=== PATIENT | male | born 1985 | race Caucasian/White ===

== ENCOUNTER 2016-11-12 17:02 | Emergency (ER) | payer OTHER ==
[2016-11-12 17:31] VITALS: BP 145/92; PULSE 96; RESP 16; TEMP 98.6; O2SAT 95
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
[2016-11-12] MEDS ORDERED: CLINDAMYCIN 600 MG/DEXTROSE 50 ML IV ONE (18:27)
[2016-11-12 18:40] LABS: % IMMATURE GRANULYOCYTES 0.2 % (0.0-1.1); ABSOLUTE IMMATURE GRANULOCYTES 0.01 10^3/uL (0.00-0.10); ADD DIFF? NO; ADD MORPH? NO; ADD SCAN? NO; ATYPICAL LYMPHOCYTE FLAG 10 (0-99); FRAGMENT RBC FLAG 0 (0-99); HEMATOCRIT 45.7 % (40.0-51.0); HEMOGLOBIN 16.2 g/dL (13.7-17.5); LEFT SHIFT FLG 0 (0-99); LIPEMIA HEMOLYSIS FLAG 90 (0-99); MEAN CELL HEMOGLOBIN CONCENTR. 35.4 g/dL (32.4-36.7); MEAN CELL VOLUME 87.5 fL (81.5-99.8); MEAN PLATELET VOLUME 10.3 fL (8.7-11.7); PLATELET CLUMPS FLAG 0 (0-99); PLATELET COUNT 224 10^3/uL (150-400); RED BLOOD CELL COUNT 5.22 10^6/uL (4.40-6.38); RED CELL DISTRIBUTION WIDTH 12.5 % (11.5-15.2)
[2016-11-12 18:51] LABS: ANION GAP 15 mEq/L (8-16); CALCIUM 9.5 mg/dL (8.5-10.4); CARBON DIOXIDE 21 mEq/l (22-31); CHLORIDE 109 mEq/L (97-110); CREATININE 0.8 mg/dL (0.7-1.3); GLOMERULAR FILTRATION RATE > 60; GLUCOSE 88 mg/dL (70-100); POTASSIUM 4.1 mEq/L (3.5-5.2); SODIUM 145 mEq/L (134-144)
[2016-11-12 18:59] LABS: SEDIMENTATION RATE 4 MM/HR (0-15)
--- NOTE | 2016-11-12 19:06 | DX ---
Left Hand 3 Views History: Injury 2 weeks ago, infection. Comparison: None available. Findings: No fractures identified. Alignment is normal. Bone mineralization is normal. There is no si gnificant degenerative change. Impression: No acute osseous findings.
== END 2016-11-12 19:27 | disposition home or self-care (01) ==
LOC: CED 17:02
DX: L08.9 Local infection of the skin and subcutaneous tissue, unspecified (principal); S61.412D Laceration without foreign body of left hand, subsequent encounter; V29.88XD Motorcycle rider (driver) (passenger) injured in other specified transport accidents, subsequent encounter; Z48.02 Encounter for removal of sutures
CPT/HCPCS: 73130-PO; 80048-PO; 85025-PO; 85652-PO; 96365-PO; 99214-PO; G0463-PO

== ENCOUNTER 2017-02-11 20:56 | Emergency (ER) | payer OTHER ==
[2017-02-11] MEDS ORDERED: HYDROmorphONE/DILAUDID 1 MG/ML SYR IVP ONE ×2 (21:07→22:43)
[2017-02-11 21:10] VITALS: RESP 16
--- NOTE | 2017-02-11 21:29 | EDPHY ---
H & P Stated Complaint: fell onto tailbone, now has uncontrolled bleeding. Source: Patient Exam Limitations: No limitations - Personal History Current Tetanus Diphtheria and Acellular Pertussis (TDAP): Yes Tetanus Vaccine Date: 2014 - Medical/Surgical History Hx Asthma: No Hx Chronic Respiratory Disease: No Hx Diabetes: No Hx Cardiac Disease: No Hx Renal Disease: No Hx Cirrhosis: No Hx Alcoholism: No Hx HIV/AIDS: No Hx Splenectomy or Spleen Trauma: No Other PMH: Tonsillectomy. Appendectomy - Social History Smoking Status: Never smoked Time Seen by Provider: 02/11/17 21:09 HPI/ROS: CHIEF COMPLAINT: Coccyx pain and bleeding HISTORY OF PRESENT ILLNESS: The patient is a 31 y/o male, with a history of hemorrhoids, complaining of pain and bleeding from his coccygeal region secondary to a fall 4 hours ago. He says he was holding a heavy box while crouched in his attic and fell backwards "in a seated position" directly onto his rectum. He has had persistent pain and bleeding from the area since then. He is unable to tell where the bleeding is coming from. He denies striking his head, losing consciousness, other injuries, weakness, or paresthesias. He has occasionally had bleeding and pain with his hemorrhoids, but has never treated them with medication. He states he's had blood in his stool for this last week subsequent to a 2-week upper respiratory infection and cough. He denies painful bowel movements and reports he did not notice more than normal pain today prior to the fall. REVIEW OF SYSTEMS: A 10 point review of systems was performed and is negative with the exception of the elements mentioned in the history of present illness. He notes he had a cold with cough about 2 weeks ago that has since resolved. (Danelle Irvin) - Medical/Surgical History PMH: PMH includes: 1. Hemorrhoids 2. Tonsillectomy 3. Appendectomy (Daenlle Irvin) - Social History Additional Social History: Nonsmoker, but endorses occasional cigar use. No alcohol. . Works as a bridge construction framer. No current PCP. Previously saw Dr. Ha. (Danelle Irvin) - Physical Exam Exam: General Appearance: Alert, no acute distress. BP 152/100. Eyes: Pupils equal and round, no conjunctival injection, no discharge. ENT, Mouth: Mucous membranes are moist, no oropharyngeal erythema or edema. Neck: Nontender to palpation over the cervical spine. Respiratory: Lungs are clear to auscultation; no wheezes, rales, or rhonchi. Cardiovascular: Regular rate and rhythm; no murmur, rub, or gallop. Gastrointestinal: Abdomen is soft and non tender, no masses or organomegaly, bowel sounds normal. Skin: Warm and dry, no rashes, normal color. Back: Nontender to palpation over the thoracolumbar spine. No midline bony tenderness over C/T/L/S spine. Rectal: Multiple external hemorrhoids with 2 small thrombosed discolored (purple ) hemorrhoids (pea sized)--one of which is particularly tender to palpation, blood oozing around hemorrhoids without obvious source. Unable to do rectal exam due to pain. Extremities: No lower extremity edema, no calf tenderness or swelling. Neurological: Alert and oriented. Moving all four extremities easily and equally. Psychiatric: Normal affect. (Danelle Irvin) Constitutional: Initial Vital Signs Temperature (C) 37.4 C 02/11/17 21:06 Heart Rate 85 02/11/17 21:06 Respiratory Rate 16 02/11/17 21:06 Blood Pressure 152/100 H 02/11/17 21:06 O2 Sat (%) 94 02/11/17 21:06 O2 Delivery Mode Room Air Allergies/Adverse Reactions: Sulfa (Sulfonamide Antibiotics) Allergy (Verified 02/11/17 21:04) sulfamethoxazole [From Bactrim] Allergy (Verified 02/11/17 21:04) trimethoprim [From Bactrim] Allergy (Verified 02/11/17 21:04) Home Medications: Medication Instructions Recorded NK [No Known Home Meds] 02/11/17 Medical Decision Making - Diagnostics Imaging: Discussed imaging studies w/ yarn mercerizer operator helper Radiologist ED Course/Re-evaluation: 0.5mg IV Dilaudid and topical anesthetic administered to hemorrhoid/anal area. Patient is unable to tolerate physical exam at this time. Sacrum x-ray ordered. 2220: X-ray is negative for fracture per Dr. Luciano. Reassessed patient and discussed findings with the patient. He is unable to tolerate complete rectal exam due to pain; however, I'm able to visualize 2 external thrombosed hemorrhoids that are quite tender to the touch. It is my impression that his pain and bleeding are secondary to hemorrhoids. The fall on to his buttocks likely exacerbated this and, in further discussion with him, it seems that he has suffered from hemorrhoid pain intermittently for quite some time. Procedure: Incision and Drainage of Thrombosed Hemorrhoid. Risks, benefits, alternatives discussed with the patient and consent obtained. The area was prepped and draped in sterile fashion. The patient received local anesthesia with 1% lidocaine with epinephrine. The hemorrhoid was incised with a #11 blade and no significant clot was expressed. Pressure applied to stop bleeding. The patient tolerated the procedure well. The procedure was performed by myself. I am referring him for surgical follow up for hemorrhoid treatment as recommended. Other hemorroid treatments reviewed with him and advised. I do not suspect rectal fissure, rectal or perirectal abscess, internal bleeding--but was unable to do full rectal exam due to his discomfort. (Danelle Irvin) - Data Points Laboratory Results: Laboratory Results 02/11/17 22:42 Medications Given: Discontinued Medications Hydrocodone Bitart/Acetaminophen ([place] 5/325mg Prepack#6) 1 btl TAKEHOME EDNOW ONE Stop: 02/11/17 23:07 Last Admin: 02/11/17 23:14 Dose: 1 btl Hydromorphone HCl (Dilaudid) 0.5 mg IVP EDNOW ONE Stop: 02/11/17 21:08 Last Admin: 02/11/17 21:19 Dose: 0.5 mg Hydromorphone HCl (Dilaudid) 0.5 mg IVP EDNOW ONE Stop: 02/11/17 22:44 Last Admin: 02/11/17 22:43 Dose: 0.5 mg Lidocaine (Uroject Lidocaine 2% Jelly) 20 ml UR EDNOW ONE Stop: 02/11/17 21:36 Last Admin: 02/11/17 21:42 Dose: 20 ml Departure - Departure Disposition: Home, Routine, Self-Care Clinical Impression: Thrombosed external hemorrhoid Condition: Good Instructions: Hydrocodone/Acetaminophen (By mouth), Hemorrhoids (ED), Thrombosed Hemorrhoid (ED) Additional Instructions: 1. Use Preparation H with hydrocortisone and apply to affected area daily. 2. Use Tucks medicated pads. 3. Take stool softener while hemorrhoids are present. 4. Take a sitz bath as directed. 5. Follow up with Dr. De Dios, surgeon, in the next week. Referrals: Cuco De Dios MD [Medical Doctor] - As per Instructions Report Scribed for: Danelle Irvin Report Scribed by: Bethany Antonio Date of Report: 02/11/17 Time of Report: 21:29 Physician Review and Approval Statement: 02/11/17 21:49 Portions of this note were transcribed by the ophthalmic medical technologist. I, Dr. Danelle Irvin, personally performed the history, physical exam, and medical decision- making; and confirmed the accuracy of the information in the transcribed note. ( Danelle Irvin)
[2017-02-11] MEDS ORDERED: LIDOCAINE 2% JELLY 20 ML (UROJECT) UR ONE (21:35)
[2017-02-11] MEDS ORDERED: LIDOCAINE 2% JELLY 20 ML (UROJECT) ONE (21:40)
[2017-02-11] MEDS ORDERED: HYDROmorphONE/DILAUDID 1 MG/ML SYR ONE (22:43)
[2017-02-11 22:48] LABS: % IMMATURE GRANULYOCYTES 0.2 % (0.0-1.1); ABSOLUTE IMMATURE GRANULOCYTES 0.01 10^3/uL (0.00-0.10); ADD DIFF? NO; ADD MORPH? NO; ADD SCAN? NO; ATYPICAL LYMPHOCYTE FLAG 20 (0-99); FRAGMENT RBC FLAG 0 (0-99); HEMOGLOBIN 14.4 g/dL (13.7-17.5); LEFT SHIFT FLG 0 (0-99); LIPEMIA HEMOLYSIS FLAG 90 (0-99); MEAN CELL HEMOGLOBIN 30.6 pg (27.9-34.1); MEAN CELL HEMOGLOBIN CONCENTR. 35.1 g/dL (32.4-36.7); MEAN CELL VOLUME 87.2 fL (81.5-99.8); MEAN PLATELET VOLUME 10.9 fL (8.7-11.7); PLATELET CLUMPS FLAG 30 (0-99); PLATELET COUNT 139 10^3/uL (150-400); RED CELL DISTRIBUTION WIDTH 13.1 % (11.5-15.2)
[2017-02-11] MEDS ORDERED: HYDROCOD/APAP 5/325 PREPACK#6 BTL TAKEHOME ONE (23:06)
[2017-02-11 23:36] VITALS: BP 146/99; PULSE 56; TEMP 98.2; O2SAT 96
== END 2017-02-11 23:25 | disposition home or self-care (01) ==
LOC: CED 20:56
PROC: 069Y0ZZ Drainage of Lower Vein, Open Approach (ICD-10-PCS; principal; 2017-02-11)
DX: K64.5 Perianal venous thrombosis (principal); W18.39XA Other fall on same level, initial encounter
CPT/HCPCS: 72220-PO; 85025-PO; 96374; J1170

== ENCOUNTER 2017-04-12 07:36 | Emergency (ER) | payer OTHER ==
[2017-04-12 07:51] VITALS: TEMP 98.6
[2017-04-12] MEDS ORDERED: ONDANSETRON 4 MG/2 ML VIAL IVP ONE (07:55)
[2017-04-12] MEDS ORDERED: NS 2,000 ML IV ONE (07:55)
[2017-04-12 08:18] LABS: % IMMATURE GRANULYOCYTES 0.3 % (0.0-1.1); ABSOLUTE IMMATURE GRANULOCYTES 0.02 10^3/uL (0.00-0.10); ADD DIFF? NO; ADD MORPH? NO; ADD SCAN? NO; ATYPICAL LYMPHOCYTE FLAG 10 (0-99); FRAGMENT RBC FLAG 0 (0-99); HEMATOCRIT 45.3 % (40.0-51.0); HEMOGLOBIN 16.1 g/dL (13.7-17.5); LEFT SHIFT FLG 0 (0-99); LIPEMIA HEMOLYSIS FLAG 90 (0-99); MEAN CELL HEMOGLOBIN CONCENTR. 35.5 g/dL (32.4-36.7); MEAN CELL VOLUME 87.3 fL (81.5-99.8); MEAN PLATELET VOLUME 10.5 fL (8.7-11.7); PLATELET CLUMPS FLAG 10 (0-99); PLATELET COUNT 193 10^3/uL (150-400); RED BLOOD CELL COUNT 5.19 10^6/uL (4.40-6.38); RED CELL DISTRIBUTION WIDTH 12.7 % (11.5-15.2)
[2017-04-12] MEDS ORDERED: LORazepam 2 MG/ML INJ IVP ONE (08:30)
[2017-04-12 08:31] LABS: ALANINE AMINOTRANSFERASE 91 IU/L (21-72); ALBUMIN 4.5 g/dL (3.5-5.0); ALKALINE PHOSPHATASE 78 IU/L (38-126); ANION GAP 16 mEq/L (8-16); ASPARTATE AMINOTRANSFERASE 42 IU/L (17-59); BILIRUBIN,TOTAL 0.7 mg/dL (0.1-1.4); CALCIUM 9.2 mg/dL (8.5-10.4); CARBON DIOXIDE 20 mEq/l (22-31); CHLORIDE 108 mEq/L (97-110); CREATININE 0.9 mg/dL (0.7-1.3); GLOMERULAR FILTRATION RATE > 60; GLUCOSE 92 mg/dL (70-100); SODIUM 144 mEq/L (134-144); TOTAL PROTEIN 7.2 g/dL (6.3-8.2)
[2017-04-12] MEDS ORDERED: METOCLOPRAMIDE 10 MG/2 ML VIAL IVP ONE (08:59)
[2017-04-12] MEDS ORDERED: MAG HYDROX/AL HYDROX/SIMETH 30 ML UDCUP PO ONE (09:30)
[2017-04-12] MEDS ORDERED: HYOSCYAMINE SULFATE 0.125 MG TAB PO ONE (09:30)
[2017-04-12 09:31] VITALS: RESP 16
[2017-04-12] MEDS ORDERED: HYOSCYAMINE SULFATE 0.125 MG TAB ONE (09:38)
--- NOTE | 2017-04-12 09:51 | EDPHY ---
H & P Stated Complaint: epigastric abd pain and vomiting since Time Seen by Provider: 04/12/17 07:50 HPI/ROS: This patient reports a feeling poorly at the end of last week starting on describing onset of nausea and vomiting. He proceeded to have vomiting she 3 times a day Wednesday. He also had diarrhea the 1st day of illness several episodes of loose watery stool then resolved. He had improved by yester-Wednesday having had resolution of his symptoms. He also describes having fevers up to 101 the 1st 2 days of illness that resolved. He awakened this morning with recurrence of vomiting attributes this to excessive alcohol intake last night. 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 He awakened early this morning 3 or 4:00 a.m. with vomiting and has persisted with frequent vomiting since then. He describes burning epigastric discomfort associated with this that is nonradiating and moderate in intensity. ROS: Constitutional: No fevers for the past 2 days. HEENT: No URI symptoms or other complaints Pulmonary: No cough shortness of breath Cardiovascular: No chest pain GI: No hematemesis or coffee-ground emesis. He reports normal bowel movements over the last 24 hours. : No complaints Integumentary: No skin rash 10 point ROS is otherwise negative Source: Patient Exam Limitations: No limitations - Personal History Current Tetanus Diphtheria and Acellular Pertussis (TDAP): Yes Tetanus Vaccine Date: 2014 - Medical/Surgical History Hx Asthma: No Hx Chronic Respiratory Disease: No Hx Diabetes: No Hx Cardiac Disease: No Hx Renal Disease: No Hx Cirrhosis: No Hx Alcoholism: No Hx HIV/AIDS: No Hx Splenectomy or Spleen Trauma: No Other PMH: Tonsillectomy - Family History Significant Family History: No pertinent family hx - Social History Smoking Status: Never smoked Alcohol Use: Other (Patient reports occasional binge drinking including last night but does not drink regularly.) Drug Use: None - Physical Exam Exam: Vital signs reveal mild hypertension 142/94, otherwise normal General Appearance: Alert, no distress. Eyes: Pupils equal and round no pallor or injection. ENT, Mouth: Mucous membranes dry. Mild alcohol halitosis Respiratory: There are no retractions, lungs are clear to auscultation. Cardiovascular: Regular rate and rhythm. No murmur gallop or rub Gastrointestinal: Abdomen is soft and nontender, no masses, bowel sounds normal. No hepatomegaly. Neurological: GCS 15 with no focal deficits. Skin: Warm and dry, no rashes. Musculoskeletal: Neck is supple nontender. Extremities are symmetrical, full range of motion. Psychiatric: Mood and affect normal DIFFERENTIAL DIAGNOSIS: After history and physical exam differential diagnosis was considered for alcohol intoxication with vomiting, alcohol gastritis, pancreatitis, cholecystitis, hepatitis Constitutional: Initial Vital Signs Temperature (C) 37.0 C 04/12/17 07:46 Heart Rate 66 04/12/17 07:46 Respiratory Rate 16 04/12/17 07:46 Blood Pressure 142/94 H 04/12/17 07:46 O2 Sat (%) 97 04/12/17 07:46 O2 Delivery Mode Room Air Allergies/Adverse Reactions: Sulfa (Sulfonamide Antibiotics) Allergy (Verified 04/12/17 07:51) sulfamethoxazole [From Bactrim] Allergy (Verified 04/12/17 07:51) trimethoprim [From Bactrim] Allergy (Verified 04/12/17 07:51) Home Medications: Medication Instructions Recorded Ondansetron Odt [Zofran Odt] 4 - 8 mg PO Q4PRN PRN #4 tab 04/12/17 Pantoprazole Sodium [Protonix 40mg 40 mg PO DAILY #30 tab 04/12/17 (RX)] Medical Decision Making ED Course/Re-evaluation: IV normal saline bolus, Zofran, Ativan, Reglan and Benadryl finally with resolution of nausea vomiting. She tolerated p.o. intake thereafter Maalox and Levsin orally with improvement in discomfort. Counseled this patient to avoid excessive binge drinking future After workup, labs reveal no evidence of hepatitis, pancreatitis or other complicating factors. Findings are most consistent with alcohol gastritis, vomiting dehydration. I counseled the patient regarding these findings. He understands the need to return emergency department should she have any significant recurrence of the symptoms despite the treatment plan - Data Points Laboratory Results: Laboratory Results 04/12/17 08:10 04/12/17 08:10 04/12/17 04/12/17 08:10 08:10 WBC 5.93 10^3/uL 10^3/uL (3.80-9.50) RBC 5.19 10^6/uL 10^6/uL (4.40-6.38) Hgb 16.1 g/dL g/dL (13.7-17.5) Hct 45.3 % % (40.0-51.0) MCV 87.3 fL fL (81.5-99.8) MCH 31.0 pg pg (27.9-34.1) MCHC 35.5 g/dL g/dL (32.4-36.7) RDW 12.7 % % (11.5-15.2) Plt Count 193 10^3/uL 10^3/uL (150-400) MPV 10.5 fL fL (8.7-11.7) Neut % (Auto) 47.1 % % (39.3-74.2) Lymph % (Auto) 39.5 % % (15.0-45.0) [place] % (Auto) 9.4 % % (4.5-13.0) Eos % (Auto) 2.7 % % (0.6-7.6) Baso % (Auto) 1.0 % % (0.3-1.7) Nucleat RBC Rel Count 0.0 % % (0.0-0.2) Absolute Neuts (auto) 2.79 10^3/uL 10^3/uL (1.70-6.50) Absolute Lymphs (auto) 2.34 10^3/uL 10^3/uL (1.00-3.00) Absolute Monos (auto) 0.56 10^3/uL 10^3/uL (0.30-0.80) Absolute Eos (auto) 0.16 10^3/uL 10^3/uL (0.03-0.40) Absolute Basos (auto) 0.06 10^3/uL 10^3/uL (0.02-0.10) Absolute Nucleated RBC 0.00 10^3/uL 10^3/uL (0-0.01) Immature Gran % 0.3 % % (0.0-1.1) Immature Gran # 0.02 10^3/uL 10^3/uL (0.00-0.10) Sodium 144 mEq/L mEq/L (134-144) Potassium 4.0 mEq/L mEq/L (3.5-5.2) Chloride 108 mEq/L mEq/L (97-110) Carbon Dioxide 20 mEq/l L mEq/l (22-31) Anion Gap 16 mEq/L mEq/L (8-16) BUN 10 mg/dL mg/dL (7-23) Creatinine 0.9 mg/dL mg/dL (0.7-1.3) Estimated GFR > 60 Glucose 92 mg/dL mg/dL (70-100) Calcium 9.2 mg/dL mg/dL (8.5-10.4) Total Bilirubin 0.7 mg/dL mg/dL (0.1-1.4) AST 42 IU/L IU/L (17-59) ALT 91 IU/L H IU/L (21-72) Alkaline Phosphatase 78 IU/L IU/L (38-126) Total Protein 7.2 g/dL g/dL (6.3-8.2) Albumin 4.5 g/dL g/dL (3.5-5.0) Lipase 45.0 IU/L IU/L (23-300) Medications Given: Discontinued Medications Al Hydroxide/Mg Hydroxide (Maalox Susp) 30 ml PO ONCE ONE Stop: 04/12/17 09:31 Last Admin: 04/12/17 09:32 Dose: 30 ml Diphenhydramine HCl (Benadryl Injection) 25 mg IVP EDNOW ONE Stop: 04/12/17 09:00 Last Admin: 04/12/17 09:03 Dose: 25 mg Hyoscyamine Sulfate (Levsin, Hyomax-Sl) 0.25 mg PO ONCE ONE Stop: 04/12/17 09:31 Last Admin: 04/12/17 09:32 Dose: 0.25 mg Sodium Chloride (Ns) 2,000 mls @ 0 mls/hr IV ONCE ONE; Wide Open PRN Reason: Protocol Stop: 04/12/17 07:56 Last Admin: 04/12/17 08:10 Dose: 2,000 mls Lorazepam (Ativan Injection) 1 mg IVP EDNOW ONE Stop: 04/12/17 08:31 Last Admin: 04/12/17 08:30 Dose: 1 mg Metoclopramide HCl (Reglan Injection) 10 mg IVP EDNOW ONE Stop: 04/12/17 09:00 Last Admin: 04/12/17 09:04 Dose: 10 mg Ondansetron HCl (Zofran) 4 mg IVP EDNOW ONE Stop: 04/12/17 07:56 Last Admin: 04/12/17 08:10 Dose: 4 mg Departure - Departure Disposition: Home, Routine, Self-Care Clinical Impression: Dehydration Vomiting Qualifiers: Vomiting type: unspecified Vomiting Intractability: non-intractable Nausea presence: with nausea Qualified Code(s): R11.2 - Nausea with vomiting, unspecified Condition: Good Instructions: Gastritis (ED), Acute Nausea and Vomiting (ED) Additional Instructions: Diagnosis: 1. Vomiting 2. Dehydration 3. Gastritis Plan: Avoid excessive binge drinking. Maalox for discomfort if needed Protonix acid morgan until your upper belly discomfort resolves. [place] diet to feel improved Zofran for nausea or vomiting Follow up with Dr. Ojeda -primary care physician for any ongoing symptoms despite the treatment plan Return for any significant worsening despite the treatment plan Referrals: NONE *PRIMARY CARE P,. [Primary Care Provider] - As per Instructions Amanda Ojeda MD [Medical Doctor] - As per Instructions Prescriptions: Ondansetron Odt [Zofran Odt] 4 - 8 mg PO Q4PRN PRN #4 tab PRN Reason: Vomiting Pantoprazole Sodium [Protonix 40mg (RX)] 40 mg PO DAILY #30 tab
[2017-04-12 10:51] VITALS: BP 121/72; PULSE 80; O2SAT 95
== END 2017-04-12 10:33 | disposition home or self-care (01) ==
LOC: CED 07:36
DX: E86.0 Dehydration (principal); E86.9 Volume depletion, unspecified
CPT/HCPCS: 80053-PO; 83690-PO; 85025-PO; 96374; J1200; J2060; J2405; J2765

== ENCOUNTER 2017-04-17 16:08 | Emergency (ER) | payer OTHER ==
--- NOTE | 2017-04-17 16:17 | EDPHY ---
General Time Seen by Provider: 04/17/17 16:16 Narrative: I was called to see patient for a medical screening exam. Patient's chief complaint and condition are such that I cannot exclude an emergency medical condition, however the patient has refused to stay for further evaluation but states they will seek care elsewhere. - History Smoking Status: Never smoked - Objective Allergies/Adverse Reactions: Sulfa (Sulfonamide Antibiotics) Allergy (Verified 04/12/17 07:51) sulfamethoxazole [From Bactrim] Allergy (Verified 04/12/17 07:51) trimethoprim [From Bactrim] Allergy (Verified 04/12/17 07:51) Home Medications: Medication Instructions Recorded Ondansetron Odt [Zofran Odt] 4 - 8 mg PO Q4PRN PRN #4 tab 04/12/17 Pantoprazole Sodium [Protonix 40mg 40 mg PO DAILY #30 tab 04/12/17 (RX)]
== END 2017-04-17 16:16 | disposition left against medical advice (07) ==
LOC: CED 16:08
DX: Z53.21 Procedure and treatment not carried out due to patient leaving prior to being seen by health care provider (principal)

== ENCOUNTER 2017-06-08 21:33 | Emergency (ER) | payer OTHER ==
[2017-06-08] MEDS ORDERED: KETAMINE 100 MG/10 ML SYR IVP ONE (22:28)
[2017-06-08] MEDS ORDERED: HYDROmorphONE/DILAUDID 1 MG/ML SYR IVP ONE (22:58)
--- NOTE | 2017-06-08 23:03 | EDPHY ---
H & P Smoking Status: Never smoked Time Seen by Provider: 06/08/17 21:39 HPI/ROS: HPI Rectal pain. 31-year-old male by private vehicle. This patient reports that he was standing on the back of his pickup truck bed when he slipped. Fell backwards on his buttocks impacting his rectal area on the edge of the pickup truck tailgate. He reports that this happened 2 days ago. He reports worsening rectal pain since this time. He reports he has had some bleeding. He has a history of hemorrhoids. He was seen in the emergency department about a year ago for a very similar complaint and had a pea-sized thrombosed hemorrhoid incised and drained at that time. ROS: Constitutional: No fever, no chills. No weakness. Respiratory: No cough. No shortness of breath. Cardiac: No chest pain, no palpitations. Gastrointestinal: No abdominal pain, no vomiting, no diarrhea. Genitourinary: No hematuria. No dysuria or increased frequency with urination. As above. Musculoskeletal: No back pain. No neck pain. No myalgias or arthralgias. Skin: No rashes. Neurological: No headache. No focal weakness or altered sensation. Past medical history: Hemorrhoids. Endoscopy. Social history: Nonsmoker. Had at least two alcoholic drinks tonight. States he drinks alcohol socially. Physical Exam: General Appearance: Alert, he appears very uncomfortable. This patient is responding to questions appropriately and in full sentences. This patient appears well-hydrated and well-nourished. Eyes: Pupils equal and round no pallor or injection. No lid edema, erythema or injection. Rectal exam: He has a large thrombosed central hemorrhoid a little smaller than a golf ball surrounded by several smaller pea to barroso-sized hemorrhoids adjacent to this and surrounding it. There is no active rectal bleeding at this time. He will not tolerate a digital rectal exam secondary to pain. Gastrointestinal: Abdomen is soft and nontender, no masses, bowel sounds normal. No focal tenderness at McBurney's point. No Patel sign. Neurological: Motor sensory function is grossly intact. Cranial nerves are normal. Gait is normal. Skin: Warm and dry, no rashes. Musculoskeletal: Neck is supple and nontender. Extremities are symmetrical. All joints range without pain or impingement. Psychiatric: No agitation. No depression. Database: EKG: Imaging: Sacral coccyx x-ray series: Procedures: Procedure: Procedural sedation. Indication: Thrombosed hemorrhoid incision and drainage. A pre-sedation evaluation was completed on the patient just prior to the procedure. Patient is an appropriate candidate for procedural sedation with ASA class 1E. Mallampati class I. Patient assessed as 332. The risks of the sedation were discussed including but not limited to dysrhythmia, need for airway intervention or general anesthesia, disability, ; and verbal consent obtained. A timeout was observed and patient's identity confirmed. The patient was sedated with 70 mg of slow push IV ketamine. The patient was monitored with continuous pulse oximetry, capnography, and laboratory monitor. There were no complications and no significant hypoxemia. He did have some anxiety with emergence from ketamine. I remained at the bedside for the sedation. The total time I spent in the procedural sedation was 20 minutes. Procedure: Thrombosed hemorrhoid incision and drainage. The patient's thrombosed centrally located hemorrhoid was incised with a 11 Blade scalpel. A 2.5 cm elliptical incision was made. Some blood and clot was expressed and suction removed. I obtained verbal consent prior to the procedure from the patient to drain the abscess who was informed about the possibility of bleeding and pain. Fine mesh gauze was placed for packing. The patient tolerated the procedure well. The procedure was performed by myself. Emergency department course: After discussion of treatment options, I explained to the patient that without significant sedation he would not be able to tolerate hemorrhoid incision and clot removal procedure as above. I discussed administration of ketamine for sedation prior to the procedure. I explained the side effect profile of this medication and the reasoning for giving this drug verses a CAL agonists secondary to his alcohol consumption tonight. He endorses. Signed consents were obtained. Procedure was performed as above. He tolerated this well. 10:45 p.m., discussed the case with Dr. Amanda Holliday the on-call trauma surgeon. She agrees with incision and drainage of large central thrombosed hemorrhoid in the emergency department. She will follow this patient up in her clinic tomorrow morning for excision and removal of his hemorrhoids. 11:00 p.m., sacral coccyx x-ray series ordered. He was given 0.5 mg of IV hydromorphone for pain. His vital signs have remained stable. His care will be turned over to Dr. Judit Ramon at this time. Sacral coccyx x-ray series pending. Expected course is complete recovery from sedation and discharge to home with follow up in [facility] office in the morning. Differential Diagnosis: The differential diagnosis on this patient includes but is not limited to thrombosed external hemorrhoids. Anal fissure, anal/rectal laceration, perirectal abscess, rectal abscess, rectal prolapse unlikely. This represents a partial list of diagnoses considered. These considerations are based on history, physical exam, past history, reassessment and diagnostic testing. ( Tripp Robison) Constitutional: Initial Vital Signs Temperature (C) 37.2 C 06/08/17 21:47 Heart Rate 100 06/08/17 21:47 Respiratory Rate 20 06/08/17 21:47 Blood Pressure 153/100 H 06/08/17 21:47 O2 Sat (%) 95 06/08/17 21:47 O2 Delivery Mode [Procedural Non-Rebreather Mask 2nd] O2 Delivery Mode [Procedural Non-Rebreather Mask 1st] O2 Delivery Mode Room Air O2 (L/minute) [Procedural 2nd] 15 O2 (L/minute) [Procedural 1st] 15 O2 (L/minute) 15 Allergies/Adverse Reactions: Sulfa (Sulfonamide Antibiotics) Allergy (Verified 06/08/17 21:47) sulfamethoxazole [From Bactrim] Allergy (Verified 06/08/17 21:47) trimethoprim [From Bactrim] Allergy (Verified 06/08/17 21:47) Home Medications: Medication Instructions Recorded NK [No Known Home Meds] 06/08/17 Medical Decision Making ED Course/Re-evaluation: Mr. Uribe was signed out to me at 2300 hours. I evaluated the patient in conjunction with Dr. Robison. The patient was still feeling a little discombobulated from the ketamine but he improved steadily over the remainder of his stay in the emergency department. He was given lidocaine gel for his rectal pain. He was also given Zofran for nausea. He will be given one 5 mg tablet of Valium to take after he cabs it home to help relax and sleep. The remainder of his discharge and follow up was written up and arranged by Dr. Robison. The patient was discharged in stable condition. He is to follow up with the general surgeon tomorrow as instructed in his discharge paperwork. The x-ray of his sacrum and coccyx was negative. (Gissel Ramon) - Data Points Medications Given: Discontinued Medications Hydrocodone Bitart/Acetaminophen ([place] 5/325mg Prepack#6) 1 btl TAKEHOME EDNOW ONE Stop: 06/08/17 23:07 Last Admin: 06/08/17 23:57 Dose: 1 btl Diazepam (Valium) 5 mg PO EDNOW ONE Stop: 06/08/17 23:51 Last Admin: 06/08/17 23:57 Dose: 5 mg Diphenhydramine HCl (Benadryl) 25 mg PO EDNOW ONE Stop: 06/09/17 00:37 Last Admin: 06/09/17 00:40 Dose: 25 mg Hydromorphone HCl (Dilaudid) 0.5 mg IVP EDNOW ONE Stop: 06/08/17 22:59 Last Admin: 06/08/17 23:08 Dose: 0.5 mg Sodium Chloride (Ns) 1,000 mls @ 3,000 mls/hr IV ONCE ONE Stop: 06/08/17 23:30 Last Admin: 06/08/17 22:35 Dose: 1,000 mls Ketamine HCl (Ketamine) 70 mg IVP EDNOW ONE Stop: 06/08/17 22:29 Last Admin: 06/08/17 22:35 Dose: 70 mg Lidocaine (Uroject Lidocaine 2% Jelly) 20 ml UR EDNOW ONE Stop: 06/08/17 23:16 Last Admin: 06/08/17 23:38 Dose: 20 ml Ondansetron HCl (Zofran) 4 mg IVP EDNOW ONE Stop: 06/08/17 23:41 Last Admin: 06/08/17 23:43 Dose: 4 mg Ondansetron HCl (Zofran Odt 4 Mg Prepack#2) 1 btl TAKEHOME EDNOW ONE Stop: 06/09/17 00:11 Last Admin: 06/09/17 00:11 Dose: 1 btl Departure - Departure Disposition: Home, Routine, Self-Care Clinical Impression: Hemorrhoids, external, Hemorrhoids, external, thrombosed Condition: Good Instructions: Hydrocodone/Acetaminophen (By mouth), Diazepam (By mouth), Ondansetron (By mouth), Thrombosed Hemorrhoid (ED) Additional Instructions: Read and follow provided instructions. Follow-up with Dr. Amanda Holliday, tomorrow morning as discussed for further management of your hemorrhoids. Call her office at 9:00 a.m.. She told me you could either be seen at 9:15 a.m. or at 11-11:30 AM. It is very important he see Dr. Holliday for further treatment of her hemorrhoids. [place]/Percocet dosin-2 every 4-[address] not drive on this medication. Ibuprofen dosin mg every 6 hours with meals for the next 3 days only. Return to the emergency department for bleeding, uncontrolled pain or other serious concerns. Referrals: Amanda Holliday MD [Medical Doctor] - As per Instructions
[2017-06-08] MEDS ORDERED: HYDROCOD/APAP 5/325 PREPACK#6 BTL TAKEHOME ONE (23:06)
[2017-06-08] MEDS ORDERED: NS 1,000 ML IV ONE (23:11)
[2017-06-08] MEDS ORDERED: LIDOCAINE 2% JELLY 20 ML (UROJECT) UR ONE (23:15)
[2017-06-08 23:40] VITALS: BP 144/92; RESP 16
[2017-06-08] MEDS ORDERED: ONDANSETRON 4 MG/2 ML VIAL IVP ONE (23:40)
[2017-06-08] MEDS ORDERED: DIAZEPAM 5 MG TAB PO ONE (23:50)
[2017-06-09] MEDS ORDERED: ONDANSETRON 4MG PREPACK#2 BTL TAKEHOME ONE (00:10)
[2017-06-09] MEDS ORDERED: diphenhydrAMINE 25 MG CAP PO ONE (00:36)
[2017-06-09 00:53] VITALS: PULSE 86; TEMP 98.1; O2SAT 92
== END 2017-06-09 00:45 | disposition home or self-care (01) ==
LOC: CED 21:33
PROC: 069Y3ZZ Drainage of Lower Vein, Percutaneous Approach (ICD-10-PCS; principal; 2017-06-08)
DX: K64.5 Perianal venous thrombosis (principal)
CPT/HCPCS: 72220-PO; 96374; J1170; J2405

== ENCOUNTER 2018-10-08 15:29 | Emergency (ER) | payer OTHER ==
[2018-10-08] MEDS ORDERED: LET GEL TOPICAL 1 EA SYR TP ONE (15:44)
[2018-10-08] MEDS ORDERED: IBUPROFEN 200 MG TAB PO ONE (16:05)
--- NOTE | 2018-10-08 17:11 | EDPHY ---
H & P Time Seen by Provider: 10/08/18 15:46 HPI/ROS: This patient sustained a left hand injury at home. He reports associated injury to the left elbow. He explains that he was working with heavy machinery attempting to adjust the bucket on tobacco when the position of the pocket slipped pending his hand between 2 heavy pieces of metal. The incident also "torqued"his left arm abruptly causing him pain to the medial aspect of his left elbow. He believes he also struck the elbow up against the metal. The incident occurred shortly prior to arrival. His neighbor was in the yd adjacent to him and saw the incident occurred was able to help the patient become on pain from the heavy metal bucket. Patient reports moderate to severe medial elbow pain that radiates down to his hand. He notes paresthesias to the hand in the median nerve distribution in feels he has loss of sensation in that distribution citing the palmar aspect of thumb through 4th fingers. He has associated laceration to the dorsum of the proximal hand-region overlying the carpal bones toward the radial aspect. He reports mild to moderate bleeding from that wound. Finally, he reports a puncture wound from the cautery pen on the pocket went through his index finger dorsum. He was able remove the cauter pin and reports mild pain to the finger. ROS: Neuro: No focal weakness to the hand. Musculoskeletal: He reports mild lateral left shoulder pain in addition. No other injuries from the incident. 5 point review of symptoms is performed and otherwise negative with exception of pertinent positives and negatives listed in HPI and ROS Smoking Status: Never smoked Physical Exam: Physical Exam Vital signs are normal. General: No acute distress HEENT: Atraumatic. Eyes: Pupils equal and react to light. Extraocular motions are intact. Lungs: No respiratory distress. Extremities: Atraumatic normal except for left upper extremity Left upper extremity: Patient has mild tenderness the apex of the shoulder. However he is able to abduct the shoulder above his head, internally and externally rotate flex and extend without difficulty. Left elbow: Patient has medial tenderness more than lateral tenderness at the region of the radial head. He can flex and extend without difficulty. Pronation supination causes mild discomfort to the medial aspect of the elbow more than lateral aspect. Left hand exam is notable for laceration. No significant bony tenderness to the hand other than mild tenderness to the 2nd finger middle phalanx region at the site of the puncture wound. Cardiac: Brisk capillary refill is intact throughout. Pulses are 2+ and symmetric in the affected extremity. Skin: No rash or pallor. Patient has a 3 cm full-thickness laceration to the dorsum of the hand/wrist area overlying the radial aspect of the carpal bones. Subcutaneous tissues evident but no deeper structures are injured. There is mild bleeding. No foreign bodies are appreciated on direct examination. Neuro: Alert and oriented x3 . The patient has loss of light touch sensation to the palmar aspect of the left hand distribution of the median nerve-medial aspect of thumb to medial aspect of 4th finger. He is loss of 2 point discrimination in the affected fingers. Despite this he seems to maintain full strength 5/5 in hand intrinsic muscles. Initial differential diagnosis: Elbow fracture, elbow sprain, elbow contusion, median nerve neurapraxia, puncture wound to finger, for finger fracture, hand contusion, hand sprain, laceration Constitutional: Initial Vital Signs Temperature (C) 36.8 C 10/08/18 15:35 Heart Rate 92 10/08/18 15:35 Respiratory Rate 16 10/08/18 15:35 Blood Pressure 142/107 H 10/08/18 15:35 O2 Sat (%) 93 10/08/18 15:35 O2 Delivery Mode Room Air Allergies/Adverse Reactions: ketamine Allergy (Verified 10/08/18 16:42) Sulfa (Sulfonamide Antibiotics) Allergy (Verified 10/08/18 15:34) sulfamethoxazole [From Bactrim] Allergy (Verified 10/08/18 15:34) trimethoprim [From Bactrim] Allergy (Verified 10/08/18 15:34) Home Medications: Medication Instructions Recorded Cephalexin [Keflex (*)] 500 mg PO TID #21 cap 10/08/18 oxyCODONE/APAP 5/325 [Percocet 1 - 2 tab PO Q4-6PRN PRN #20 tab 10/08/18 5/325 (*)] MDM/Departure - MDM Diagnostics: Hand x-rays: Negative for fracture by my interpretation Elbow x-rays: Negative for fracture by my interpretation Imaging Results: Imaging Impressions Hand X-Ray 10/08/18 15:43 Impression: Negative. No acute fracture. Elbow X-Ray 10/08/18 17:10 Impression: Normal. No acute fracture or effusion. Imaging: I viewed and interpreted images myself Procedures: Anesthetized the patient's hand laceration with a 50 50 mix of 0.5% Marcaine 1% plain lidocaine, 27 gauge needle -8 mL with good effect. The wound is 3 cm full-thickness. The wound was copiously irrigated with saline. The wound was explored for foreign bodies and none were found. The wound was prepped and draped in the normal sterile fashion. The edges were reapproximated using 4 0 Prolene -7 running sutures with good hemostasis and cosmesis. The patient tolerated the procedure well. There were no complications Medications Given: Discontinued Medications Hydrocodone Bitart/Acetaminophen ([place] 5/325) 2 tab PO EDNOW ONE Stop: 10/08/18 17:15 Last Admin: 10/08/18 17:40 Dose: Not Given Ibuprofen (Motrin) 600 mg PO EDNOW ONE Stop: 10/08/18 16:06 Last Admin: 10/08/18 16:14 Dose: 600 mg Oxycodone/Acetaminophen (Percocet 5/325) 2 tab PO EDNOW ONE Stop: 10/08/18 17:34 Last Admin: 10/08/18 17:39 Dose: 2 tab Tetracaine/Epinephrine/Lidocaine (Let Gel Topical) 1 ea TP EDNOW ONE Stop: 10/08/18 15:45 Last Admin: 10/08/18 16:26 Dose: Not Given ED Course/Re-evaluation: Patient was given ibuprofen and Percocet for analgesia for his elbow pain and placed in a sling. Discussion: Patient here with contusion to the left elbow and parent median nerve neurapraxia likely from a blow to the medial aspect of the elbow resulting in sensory loss in the median nerve distribution of the left hand. Has associated puncture wound to the finger without fracture, and hand laceration. I counseled patient regarding neurapraxia. Will plan to have him sling his left arm for the next 3-10 days with gentle stretching in between, wound care to the laceration, ibuprofen, Tylenol or Percocet for pain control and follow up with Orthopedics regarding the left elbow injury/neurapraxia symptoms. - Depart Disposition: Home, Routine, Self-Care Clinical Impression: Hand laceration Qualifiers: Encounter type: initial encounter Foreign body presence: without foreign body Laterality: left Qualified Code(s): S61.412A - Laceration without foreign body of left hand, initial encounter Elbow contusion Qualifiers: Encounter type: initial encounter Laterality: left Qualified Code(s): S50.02XA - Contusion of left elbow, initial encounter Neurapraxia of median nerve Qualifiers: Encounter type: initial encounter Laterality: left Qualified Code(s): S54.12XA - Injury of median nerve at forearm level, left arm, initial encounter Puncture wound of finger Qualifiers: Encounter type: initial encounter Qualified Code(s): S61.239A - Puncture wound without foreign body of unspecified finger without damage to nail, initial encounter Condition: Good Instructions: Cephalexin (By mouth), Oxycodone/Acetaminophen (By mouth), Laceration (ED), Neurapraxia (ED) Additional Instructions: Diagnoses:. Hand laceration 2. Elbow contusion 3. Left Median nerve neurapraxia 4. Puncture wound of finger Plan: Sling to elbow for comfort for the next 3-7 days Gentle range of motion of elbow to keep it from becoming too stiff Aleve or ibuprofen anti-inflammatory Tylenol or Percocet in addition if needed for pain. No driving, alcohol work on Percocet Keflex antibiotic to prevent infection to the puncture wound and finger Call the orthopedic physician listed below to arrange follow-up appointment for recheck in 5-10 days. Keep the laceration clean and dry for the next 2 days then clean daily with warm soapy water. Return for suture removal in 10 days Prescriptions: Cephalexin [Keflex (*)] 500 mg PO TID #21 cap oxyCODONE/APAP 5/325 [Percocet 5/325 (*)] 1 - 2 tab PO Q4-6PRN PRN #20 tab PRN Reason: Pain Referrals: NONE *PRIMARY CARE P,. [Primary Care Provider] - As per Instructions Dain Romo MD [Medical Doctor] - As per Instructions Geraldine Hinton MD [Medical Doctor] - As per Instructions
[2018-10-08] MEDS ORDERED: HYDROCODONE/APAP 5/325 TAB PO ONE (17:14)
[2018-10-08] MEDS ORDERED: OXYCODONE/APAP 5/325 TAB PO ONE (17:33)
[2018-10-08 17:46] VITALS: BP 117/72
== END 2018-10-08 17:55 | disposition home or self-care (01) ==
LOC: CED 15:29
PROC: 0HQGXZZ Repair Left Hand Skin, External Approach (ICD-10-PCS; principal; 2018-10-08)
DX: S61.412A Laceration without foreign body of left hand, initial encounter (principal); S50.02XA Contusion of left elbow, initial encounter; S54.12XA Injury of median nerve at forearm level, left arm, initial encounter; X17.XXXA Contact with hot engines, machinery and tools, initial encounter; Y99.8 Other external cause status; Y92.009 Unspecified place in unspecified non-institutional (private) residence as the place of occurrence of the external cause; Y93.89 Activity, other specified
CPT/HCPCS: 73080-PO; 73130-PO